=== PATIENT | male | born 1960 | race Caucasian/White ===

== ENCOUNTER → 2017-12-24 06:28 | Outpatient (CLI) | payer OTHER, SELFPAY ==
--- NOTE | 2017-12-24 09:14 | STRESSREP ---
Stress Test Report Pharmacologic myocardial perfusion stress test. 57-year-old man with history of coronary artery disease for preop evaluation. Stress protocol: Resting EKG demonstrates sinus bradycardia with a rate of 56 bpm. Resting blood pressure was 138/70 mmHg. 0.4 mg of regadenoson was infused per usual protocol followed by rapid intravenous saline flush injection continuous EKG monitoring was performed. The maximum heart rate attained was 80 bpm which was 48% of maximum predicted heart rate the maximum workload was 1 metabolic equivalent. At rest were no ST or T-wave changes noted suggest abnormal flow reserve at peak infusion no ST or T-wave changes were noted to suggest abnormal flow reserve. Resting blood pressure 738/70 final blood pressure 738/80 mmHg. Myocardial perfusion protocol. 14.6 mCi of technetium 99m sestamibi was injected at rest. 0.4 mg of regadenoson was infused per usual protocol at peak infusion 44.7 mCi of technetium 99m sestamibi was injected stress images were obtained stress and rest images were reconstructed and compared in the short axis vertical long and horizontal long axis. Gated images were also obtained Perfusion SPECT analysis: Review of the images demonstrate normal uptake of tracer noted in all areas myocardium. There is significant GI uptake noted on the stress and resting images. However normal perfusion is noted on the stress and rest images to a similar extent no obvious areas of reversibility are noted suggest ischemia. Gated SPECT analysis: The gated ejection fraction is noted to be 71%. Conclusion: Normal pharmacologic myocardial perfusion stress test. Preserved ejection fraction.
== END ==
PROVIDERS: Family Provider Family Medicine; PCP Family Medicine; Visit Provider Internal Medicine Cardiovascular Disease
DX: Z01.810 Encounter for preprocedural cardiovascular examination (principal); Z95.5 Presence of coronary angioplasty implant and graft
CPT/HCPCS: 78452; 93017; A9500; A4216; J2785

== ENCOUNTER → 2023-02-26 | Outpatient (CLI) | payer BC, SELFPAY ==
[2023-02-26 14:57] LABS: Anion Gap 3 (5-15); BUN 20 mg/dL (7-18); BUN/Creat Ratio 14.8 RATIO (10-20); Calcium,Total 8.9 mg/dL (8.5-10.1); Chloride 111 mmol/L (98-107); Creatinine, Serum 1.35 mg/dL (0.70-1.30); EST Glomerular Filtration Rate 57 mL/min (>60); Est Glom Filt Rate - Afr Amer 69 mL/min (>60); Glucose 80 mg/dL (74-106); Potassium 4.1 mmol/L (3.5-5.1); Sodium Level 141 mmol/L (136-145)
== END | disposition home or self-care (01) ==
LOC: LAB 14:27
PROVIDERS: PCP Family Medicine; Referring Provider Nurse Practitioner Gerontology; Visit Provider Nurse Practitioner Gerontology
DX: I10 Essential (primary) hypertension (principal)
CPT/HCPCS: 36415; 80048

== ENCOUNTER → 2023-04-07 | Outpatient (CLI) | payer BC, SELFPAY ==
--- NOTE | 2023-04-07 19:14 | STRESSREP ---
Stress Test Report Exercise myocardial perfusion stress test. 63-year-old man with a history of coronary artery disease Stress protocol: Resting EKG demonstrates sinus bradycardia with a rate of 57 bpm resting blood pressure is 158/90 mmHg. The patient exercised according to the regular Foster protocol for a total duration of 9 minutes attaining a maximum heart rate of 139 bpm which was 87% of maximum predicted heart rate; the maximum workload was 10.4 metabolic equivalents. At rest there were no ST or T wave changes noted to suggest ischemia and at peak exercise upsloping ST changes only were noted which did not meet the criteria for ischemia. No clinical angina was noted the test was terminated due to the target heart rate being achieved/fatigue. The peak blood pressure was 198/70 mmHg. Rate-pressure product was 22,800. Myocardial perfusion protocol. 14.6 mCi of technetium 99m sestamibi was injected at rest. The patient exercised according to regular Foster protocol for total duration of 9 minutes and at peak exercise 44.7 mCi of technetium 99m sestamibi was injected stress images were obtained stress and rest images were reconstructed in comparing the short axis vertical long and horizontal long axis. Gated images were also obtained. Perfusion SPECT analysis: Review of the stress images demonstrate normal uptake of tracer noted in all areas of the myocardium. The resting images similarly demonstrate normal uptake of tracer noted in all areas of the myocardium. No areas of reversibility are noted to suggest ischemia no previous infarct was noted. Gated SPECT analysis: The gated ejection fraction is 66%. Conclusion: Normal exercise myocardial perfusion stress test at a high workload Preserved ejection fraction.
== END | disposition home or self-care (01) ==
LOC: CVS 06:42
PROVIDERS: PCP Family Medicine; Referring Provider Nurse Practitioner Gerontology; Visit Provider Nurse Practitioner Gerontology
DX: I25.10 Atherosclerotic heart disease of native coronary artery without angina pectoris (principal); I10 Essential (primary) hypertension; Z95.5 Presence of coronary angioplasty implant and graft
CPT/HCPCS: 78452; 93017; A9500; A4216